=== PATIENT | male | born 1985 | race Caucasian/White ===

== ENCOUNTER 2019-06-22 09:40 | Emergency (ER) | payer OTHER ==
[2019-06-22 09:54] VITALS: BP 110/71; PULSE 61; TEMP 98.2; BMI 24.7
[2019-06-22] MEDS ORDERED: GABAPENTIN 300 MG CAPSULE (FP) PO ONE (10:31)
[2019-06-22] MEDS ORDERED: GABAPENTIN 100 MG CAPSULE (FP) ONE (10:39)
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
== END 2019-06-22 11:04 | disposition home or self-care (01) ==
LOC: JERFT 09:40
DX: T75.4XXA Electrocution, initial encounter (principal); X58.XXXA Exposure to other specified factors, initial encounter; Y93.89 Activity, other specified; Y92.89 Other specified places as the place of occurrence of the external cause; Y99.0 Civilian activity done for income or pay
CPT/HCPCS: 99281-25

== ENCOUNTER 2020-04-20 06:52 | Emergency (ER) | payer OTHER ==
[2020-04-20 06:59] VITALS: BP 111/60; PULSE 76; TEMP 99; BMI 25.0
--- OUTSIDE RECORDS SUMMARY | 2020-04-20 07:03 | XMS ---
:1985 Author Organization [facility] Support Name Relationship Address Phone [facility] [place] [address] Re-disclosure Warning The records that you are about to access may contain information from federally- assisted alcohol or drug abuse programs. If such information is present, then the following federally mandated warning applies: This information has been disclosed to you from records protected by federal confidentiality rules (42 CFR part 2). The federal rules prohibit you from making any further disclosure of this information unless further disclosure is expressly permitted by the written consent of the person to whom it pertains or as otherwise permitted by 42 CFR part 2. A general authorization for the release of medical or other information is NOT sufficient for this purpose. The Federal rules restrict any use of the information to criminally investigate or prosecute any alcohol or drug abuse patient.The records that you are about to access may contain highly sensitive health information, the redisclosure of which is protected by Article 27-F of the [facility] Public Health law. If you continue you may haveaccess to information: Regarding HIV / AIDS; Provided by facilities licensed or operated by the [facility] Office of Mental Health; or Provided by the [facility] Office for People With Developmental Disabilities. If such information is present, then the following [facility] mandated warning applies: This information has been disclosed to you from confidential records which are protected by state law. State law prohibits you from making any further disclosure of this information without the specific written consent of the person to whom it pertains, or as otherwise permitted by law. Any unauthorized further disclosure in violation of state law may result in a fine or assisted sentence or both. A general authorization for the release of medical or other information is NOT sufficient authorization for further disclosure. Insurance Providers Payer name Policy type Policy ID Covered Covered constitution party's Policy P cherie / Coverage constitution party ID relationship to [employer] Inf ormation type newby [employer] [id number] SP [id number] MANAGEMENT Results ID Date Data Source [id number] 10/10/2019 12:00:00 AM EDT [facility] Name Value Range Interpretation Code Description Data Jacquie rce(s) Supporting Document(s ) 2019-nCoV [facility] RNA XXX RADHA+probe- Imp This lab was ordered by [facility] and reported by [employer] Procedure
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
[2020-04-20] MEDS ORDERED: ACETAMINOPHEN 325 MG TABLET (FP) PO ONE (07:21)
[2020-04-20] MEDS ORDERED: ACETAMINOPHEN 325 MG TABLET (FP) ONE (07:22)
== END 2020-04-20 07:25 | disposition home or self-care (01) ==
LOC: FER 06:52
DX: S00.33XA Contusion of nose, initial encounter (principal); S00.83XA Contusion of other part of head, initial encounter
CPT/HCPCS: 99283-25

== ENCOUNTER 2020-09-28 19:43 | Emergency (ER) | payer OTHER ==
[2020-09-28 19:49] VITALS: BP 116/73; PULSE 74; TEMP 99.3; BMI 24.6
[2020-09-28] MEDS ORDERED: ACETAMINOPHEN 325 MG TABLET (FP) PO ONE (20:06)
[2020-09-28] MEDS ORDERED: ACETAMINOPHEN 325 MG TABLET (FP) ONE (20:10)
== END 2020-09-28 20:15 | disposition home or self-care (01) ==
LOC: FER 19:43
DX: R51.9 Headache, unspecified (principal); F41.1 Generalized anxiety disorder
CPT/HCPCS: 99283-25

== ENCOUNTER 2022-01-31 22:37 | Emergency (ER) | payer OTHER, BC ==
[2022-01-31 22:44] VITALS: BMI 26.9
[2022-01-31] MEDS ORDERED: IBUPROFEN 600 MG TABLET (FP) PO ONE ×2 (22:47→22:57)
[2022-01-31 22:49] VITALS: BP 133/78; PULSE 68; TEMP 97.9
[2022-01-31] MEDS ORDERED: ACETAMINOPHEN 500 MG TABLET (FP) PO ONE (23:23)
[2022-01-31] MEDS ORDERED: ACETAMINOPHEN 500 MG TABLET (FP) ONE (23:24)
== END 2022-01-31 23:26 | disposition home or self-care (01) ==
LOC: FER 22:37
DX: S63.617A Unspecified sprain of left little finger, initial encounter (principal); S60.00XA Contusion of unspecified finger without damage to nail, initial encounter; W23.0XXA Caught, crushed, jammed, or pinched between moving objects, initial encounter
CPT/HCPCS: 73130-TC-LT-FY; 99283-25

== ENCOUNTER 2022-07-08 23:28 | Emergency (ER) | payer BC, OTHER ==
[2022-07-08 23:42] VITALS: BP 117/76; PULSE 89; RESP 16; TEMP 98.7; BMI 26.9
[2022-07-08] MEDS ORDERED: DIPHTH,PERTUSS(ACELL),TET 0.5 ML DISP.SYRIN IM ONE (23:57)
[2022-07-08] MEDS ORDERED: IBUPROFEN 600 MG TABLET (FP) PO ONE (23:57)
[2022-07-09] MEDS ORDERED: DIPHTH,PERTUSS(ACELL),TET 0.5 ML DISP.SYRIN IM ONE
[2022-07-09] MEDS ORDERED: IBUPROFEN 600 MG TABLET (FP) PO ONE
== END 2022-07-09 00:40 | disposition home or self-care (01) ==
LOC: FER 23:28
PROC: 3E0234Z Introduction of Serum, Toxoid and Vaccine into Muscle, Percutaneous Approach (ICD-10-PCS; principal; 2022-07-08)
DX: S60.512A Abrasion of left hand, initial encounter (principal); S86.811A Strain of other muscle(s) and tendon(s) at lower leg level, right leg, initial encounter; S86.912A Strain of unspecified muscle(s) and tendon(s) at lower leg level, left leg, initial encounter; S61.213A Laceration without foreign body of left middle finger without damage to nail, initial encounter; S63.617A Unspecified sprain of left little finger, initial encounter; R20.2 Paresthesia of skin; Y99.8 Other external cause status
CPT/HCPCS: 90715; 99283-25

== ENCOUNTER 2023-12-20 22:53 | Emergency (ER) | payer OTHER ==
[2023-12-20 23:43] VITALS: BP 104/66; PULSE 62; RESP 14; TEMP 97.4; BMI 24.3
[2023-12-20] MEDS ORDERED: IBUPROFEN 600 MG TABLET (FP) PO ONE (23:51)
[2023-12-21] MEDS: IBUPROFEN 600 MG TABLET (FP) PO ONE (00:21)
== END 2023-12-21 00:45 | disposition home or self-care (01) ==
LOC: FER 22:53
DX: S80.01XA Contusion of right knee, initial encounter (principal); W19.XXXA Unspecified fall, initial encounter
CPT/HCPCS: 73562-TC-RT-FY; 99283-25

== ENCOUNTER 2024-02-14 19:33 | Emergency (ER) | payer OTHER ==
[2024-02-14 20:24] VITALS: BP 115/77; PULSE 79; RESP 18; TEMP 98.2; BMI 25.1
[2024-02-14] MEDS ORDERED: IBUPROFEN 400 MG TABLET (FP) PO ONE (20:30)
[2024-02-14] MEDS: IBUPROFEN 400 MG TABLET (FP) PO ONE (21:02)
== END 2024-02-14 21:18 | disposition home or self-care (01) ==
LOC: FER 19:33
DX: M54.41 Lumbago with sciatica, right side (principal); M25.561 Pain in right knee; M25.562 Pain in left knee
CPT/HCPCS: 72110-TC-FY; 73562-TC-LT-FY; 73562-TC-RT-FY; 99284-25

== ENCOUNTER 2024-07-31 22:15 | Emergency (ER) | payer OTHER ==
[2024-07-31 22:26] VITALS: BP 124/74; PULSE 92; RESP 16; TEMP 98.6; BMI 25.0
[2024-07-31] MEDS ORDERED: ACETAMINOPHEN 325 MG TABLET (FP) ONE (22:51)
[2024-07-31] MEDS ORDERED: IBUPROFEN 600 MG TABLET (FP) PO ONE (22:51)
[2024-07-31] MEDS: IBUPROFEN 600 MG TABLET (FP) PO ONE (22:52)
[2024-07-31] MEDS: ACETAMINOPHEN 500 MG TABLET (FP) PO ONE (22:52)
[2024-08-01 08:26] LABS: HIV INTERPRETATION NEGATIVE (NEGATIVE)
== END 2024-08-01 00:40 | disposition home or self-care (01) ==
LOC: JERFT 22:15 → JER 22:15
DX: S80.211A Abrasion, right knee, initial encounter (principal); S80.212A Abrasion, left knee, initial encounter; R07.89 Other chest pain; M79.641 Pain in right hand; M79.642 Pain in left hand; Y04.8XXA Assault by other bodily force, initial encounter
CPT/HCPCS: 36415; 71046-TC-FY; 73130-TC-LT-FY; 73130-TC-RT-FY; 73560-TC-LT-FY; 73560-TC-RT-FY; 86803; 87389; 93005; 93010; 99285-25

== ENCOUNTER 2025-02-16 18:20 | Emergency (ER) | payer OTHER ==
[2025-02-16 18:35] VITALS: BP 116/73; PULSE 68; RESP 18; TEMP 97.9; BMI 24.6
[2025-02-16] MEDS: IBUPROFEN 400 MG TABLET (FP) PO ONE (18:52)
[2025-02-16] MEDS ORDERED: IBUPROFEN 400 MG TABLET (FP) PO ONE (18:52)
== END 2025-02-16 20:16 | disposition home or self-care (01) ==
LOC: FER 18:20
DX: R07.89 Other chest pain (principal); Y35.811A Legal intervention involving manhandling, law enforcement official injured, initial encounter
CPT/HCPCS: 71101-TC-LT-FY; 99283-25